=== PATIENT | male | born 1960 | race Caucasian/White ===

== ENCOUNTER 2024-09-25 13:15 | Emergency (ER) | payer MEDICARE, SELFPAY ==
[2024-09-25 13:30] VITALS: BP 134/81; PULSE 84; RESP 16; TEMP 36.9; O2SAT 98
--- NOTE | 2024-09-25 13:30 | ED.EAR ---
HPI - Ear Problem General Chief complaint: Ear Stated complaint: EAR CLOGGED Time Seen by Provider: 09/25/24 13:30 Source: patient, RN notes reviewed and old records reviewed Mode of arrival: ambulatory Limitations: no limitations History of Present Illness HPI Narrative: 64 year old male accompanied by daughter with complaints of ringing in the ears and feeling like his ears are clogged. Daughter reports that her father had episode in July where he had dizziness, vertigo, and change in mood, was forgetful and was taken to the ED at [place] where he had CT scan and MRI of the brain and he did follow up with his primary care physician as ordered. Patient does have follow up with ENT doctor in [place] bu not till November. Patient did have hernia surgery on September 16 in [place].Daughter reports that father seems different he is forgetful and mood different also, states that his friends also have noted changes in him, she is concerned of alcohol related dementia. Patient does admit to daily alcohol use states at least 6 pack daily. Patient reports no tobacco use and denies any use of marijuana or any illicit drug use. Daughter reports that he has had some falls in the past 6 months. MD Complaint: other (tinnitus, ears fell clogged, hearing decreased,forgetfullness and some intermittent dizziness.) Location: bilateral Duration: constant Severity: moderate Relieving factors: nothing Discharge from ear: Reports no Treatment prior to arrival: other (has been seen in ED, had follow up with PCP and has appt with ENT in November) Related Data Home Medications ?Medication ?Instructions ?Recorded ?Confirmed ?Last Taken ?Type amlodipine 5 mg tablet 5 mg PO DAILY 09/25/24 09/25/24 Unknown History bupropion HCl 300 mg 24 hr tablet, 300 mg PO DAILY 09/25/24 09/25/24 Unknown History extended release citalopram 20 mg tablet 20 mg PO DAILY 09/25/24 09/25/24 Unknown History meloxicam 15 mg tablet 15 mg PO DAILY 09/25/24 09/25/24 Unknown History simvastatin 20 mg tablet 20 mg PO QPM 09/25/24 09/25/24 Unknown History Allergies Allergy/AdvReac Type Severity Reaction Status Date / Time No Known Allergies Allergy Unverified 09/25/24 13:23 Review of Systems Review of Systems: CONSTITUTIONAL: Denies malaise, chills, sweats, or fever. EYES: Denies visual changes, redness, or discharge. ENT: Reports no rhinorrhea, congestion, sinus pain,no otalgia reports constant ringing in ears,and no sore throat. CARDIOVASCULAR: Denies chest pain, palpitations, or edema. RESPIRATORY: Reports no cough.? Denies dyspnea. GASTROINTESTINAL: Denies abdominal pain, nausea, vomiting, diarrhea SKIN: Denies rash or itching. MUSCULOSKELETAL: Denies myalgia. NEUROLOGIC: Denies headache.reports some episodes of dizziness, and constant ear ringing All systems reviewed & are unremarkable except as noted in HPI and below PMFSH Past Medical History Medical History (Updated 09/26/24 @ 16:05 by Ml Maloney NP) Depression Arthritis Tinnitus Hyperlipidemia Hypertension Surgical History Surgical History (Updated 09/26/24 @ 15:45 by Ml Maloney NP) History of total bilateral knee replacement History of shoulder surgery left History of hernia repair 09/2024 Family History Family History (Updated 12/31/13 @ 07:13 by DOCTOR UNKNOWN) Other Family history of arthritis Social History Social History (Updated 09/26/24 @ 15:48 by Ml Maloeny NP) Smoking status: Never smoker Alcohol intake: current Alcohol use details: reports daily alcohol use Substance use type: does not use Living arrangements: alone Occupation/Education: retired Additional occupation/education comments: construction Gender identity (if verbalized by the patient): Male Comments At time of signature, agree with nursing past medical, surgical, social and family history. There is no relevant family history pertinent to the presenting complaint Exam Narrative: GENERAL: Well-appearing, well-nourished, and in no acute distress. HEAD: Normocephalic EYES: PERRLA, conjunctivae clear, no nystagmus ENT: Nares clear, turbinates edematous and erythematous, clear discharge. Mucous membranes moist. TM pearly jennings with dull light reflex bilaterally; no tragal tenderness, Reports constant ringing in ears and decreased hearing.. Oropharynx erythematous without lesions. Tonsils not enlarged and without exudate, no drooling, no hoarseness, no trismus, uvula midline. NECK: Supple. No lymphadenopathy CHEST: Clear to auscultation, breath sounds equal. No wheezing, rhonchi, rales, or stridor. No respiratory distress, speaks in full sentences.SAO2 98% on room air HEART: Regular rate and rhythm. No murmur heard. SKIN: Warm, dry, no rash. NEURO: Alert and oriented x3.does report some forgetfulness, reports some episodes of feeling dizzy with episode a month ago of vertigo with ED visit PSYCH: Normal mood and affect, reports history of depression is on Celexa and Wellbutrin daily Course Course Emergency Course: Patient is aware of diagnosis, understands and agrees to treatment plan.? Anticipatory guidance given.? Patient agrees to follow-up as directed and is aware of reasons to seek care at the emergency department. Portions of this record may have been created with voice recognition software Level of Care: Express Care Visit Vital Signs Vital signs: Vital Signs Temperature 36.9 C 09/25/24 13:30 Pulse Rate 84 09/25/24 13:30 Respiratory Rate 16 09/25/24 13:30 Blood Pressure 134/81 09/25/24 13:30 Pulse Oximetry 98 09/25/24 13:30 Temperature 36.9 C 09/25/24 13:30 Pulse Rate 84 09/25/24 13:30 Respiratory Rate 16 09/25/24 13:30 Blood Pressure 134/81 09/25/24 13:30 Pulse Oximetry 98 09/25/24 13:30 Reviewed Medical Decision Making Differential Diagnosis Differential Diagnosis: acute tinnitus, Meniere's disease, decreased hearing, concern of family for changes in mental status Medical Records Medical records reviewed: Yes I reviewed the external patient's medical records. Vital Signs Vital Signs: Vital Signs Temperature 36.9 C 09/25/24 13:30 Pulse Rate 84 09/25/24 13:30 Respiratory Rate 16 09/25/24 13:30 Blood Pressure 134/81 09/25/24 13:30 Pulse Oximetry 98 09/25/24 13:30 Temperature 36.9 C 09/25/24 13:30 Pulse Rate 84 09/25/24 13:30 Respiratory Rate 16 09/25/24 13:30 Blood Pressure 134/81 09/25/24 13:30 Pulse Oximetry 98 09/25/24 13:30 reviewed Critical Care Time Critical Care Time Critical Care Time: No Discharge Plan Discharge Clinical Impression: Bilateral tinnitus Decreased hearing Qualifiers: Laterality: bilateral Qualified Code(s): H91.93 - Unspecified hearing loss, bilateral Patient Disposition: Home Condition: Stable Instructions: Tinnitus (ED) Additional Instructions: Make position changes slowly make sure you are drinking plenty of fluids such as water juices avoid caffeine daily antihistamine such as Zyrtec or Claritin, Tylenol for pain can use Coricidin brand decongestant keep list of medications in your wallet at all times follow-up with your primary doctor for further evaluation keep appointment that is already established with ENT avoid alcohol use as much as possible, quit If your symptoms persist, change or worsen significantly before you can contact your personal physician then please, without delay, go to the emergency department for further evaluation. Follow-up with PCP in 7-10 days or sooner if needed Follow up with PCP soon in regards to your blood pressure which is elevated above threshold for referral. Blood pressure above 120/80 may indicate pre-hypertension. 134/81 Patient Language: Kazakh Prescriptions: No Action citalopram 20 mg tablet 20 mg PO DAILY amlodipine 5 mg tablet 5 mg PO DAILY bupropion HCl 300 mg tablet extended release 24 hr 300 mg PO DAILY meloxicam 15 mg tablet 15 mg PO DAILY simvastatin 20 mg tablet 20 mg PO QPM Follow-up/Referrals: Cortes,Osvaldo Tilley MD [Primary Care Provider] - Time of Disposition: 14:05 Quality Candice Coma Scale Eyes: Open Verbal: Oriented and Alert Motor: Follows Commands Candice Coma Total Score: 15
== END 2024-09-25 14:09 | disposition home or self-care (01) ==
PROVIDERS: Emergency Provider Registered Nurse; PCP Internal Medicine
DX: H93.13 Tinnitus, bilateral (principal); H91.93 Unspecified hearing loss, bilateral; I10 Essential (primary) hypertension; E78.5 Hyperlipidemia, unspecified; M19.90 Unspecified osteoarthritis, unspecified site; Z96.653 Presence of artificial knee joint, bilateral; F32.A Depression, unspecified
CPT/HCPCS: 99211; G0463

== ENCOUNTER 2025-02-20 10:33 | Emergency (ER) | payer MEDICARE, SELFPAY ==
--- NOTE | ~2025-02-20 | XR_ITS ---
Examination: XR ankle LT min 3V Clinical History: pain with trauma Comparison: None Technique: 3 views left ankle Findings/impression: 1. No fracture or dislocation left ankle. 2. Severe soft tissue swelling lateral ankle. 3. Diabetic arteriopathy. 4. Small calcaneal plantar enthesophyte. Reviewed, dictated and finalized at location R.
--- NOTE | 2025-02-20 10:50 | ED.LOWEXIN ---
HPI - Extremity Injury (Lower) General Chief Complaint: Extremity Injury, Lower Stated Complaint: Injured L Ankle Patient presents to the [facility] with complaints of bruising, swelling, and pain to left ankle that began last after a fall. No medication remedies attempted for symptoms. Patient reports increased pain with movement and weight-bearing. Denies numbness or tingling in foot or toes Related Data Home Medications ?Medication ?Instructions ?Recorded ?Confirmed ?Last Taken ?Type amlodipine 5 mg tablet 5 mg PO DAILY 09/25/24 02/20/25 Unknown History bupropion HCl 300 mg 24 hr tablet, 300 mg PO DAILY 09/25/24 02/20/25 Unknown History extended release citalopram 20 mg tablet 20 mg PO DAILY 09/25/24 02/20/25 Unknown History meloxicam 15 mg tablet 15 mg PO DAILY 09/25/24 09/25/24 Unknown History simvastatin 20 mg tablet 20 mg PO QPM 09/25/24 02/20/25 Unknown History oxycodone-acetaminophen 5 mg-325 tablet 02/20/25 Unknown History mg tablet Allergies Allergy/AdvReac Type Severity Reaction Status Date / Time No Known Allergies Allergy Verified 02/20/25 10:50 Review of Systems Constitutional: Constitutional: Reports as per HPI, Denies chills, Denies fatigue, Denies fever(s) and Denies weakness Eyes: Eyes: Reports no additional eye complaints ENT: Reports system reviewed and no additional complaints, except as documented Cardiovascular: Cardiovascular: Reports no additional cardiovascular complaints Respiratory: Respiratory: Reports no additional respiratory complaints Gastrointestinal: Gastrointestinal: Reports no additional gastrointestinal complaints Genitourinary: Genitourinary: Reports no additional male genitourinary complaints Musculoskeletal: Musculoskeletal: Reports as per HPI, Reports arthralgias and Reports joint swelling Integumentary/Breasts: Skin/Breast: Reports as per HPI, Denies pruritus, Denies rash and Denies skin ulcer Comments: bruising Neurologic: Reports as per HPI, Denies numbness and Denies weakness Psychiatric: Psychiatric: Reports no additional psychiatric complaints Endocrine: Endocrine: Reports no additional endocrine complaints Hematologic/Lymphatic: Hematologic/Lymphatic: Reports no additional hematologic/lymphatic complaints Allergic/Immunologic: Allergic/Immunologic: Reports no additional allergic/immunologic complaints [facility] Past Medical History Medical History (Updated 02/20/25 @ 11:26 by Dulce D. Galletta, [employer]) Depression Arthritis Tinnitus Hyperlipidemia Hypertension Surgical History Surgical History (Updated 09/26/24 @ 15:45 by Ml Maloney NP) History of total bilateral knee replacement History of shoulder surgery left History of hernia repair 09/2024 Family History Family History (Updated 12/31/13 @ 07:13 by DOCTOR UNKNOWN) Other Family history of arthritis Social History Social History (Updated 09/26/24 @ 15:48 by Ml Maloney NP) Smoking status: Never smoker Alcohol intake: current Alcohol use details: reports daily alcohol use Substance use type: does not use Living arrangements: alone Occupation/Education: retired Additional occupation/education comments: construction Gender identity (if verbalized by the patient): Male Exam Const: General: healthy appearing and no acute distress Nutritional Appearance: well nourished Orientation/consciousness: patient oriented x3 Limitations: no limitations Resp: Effort & Inspection: normal respiratory effort Auscultation: clear to auscultation bilaterally Cardio: Rate: regular rate Rhythm: regular rhythm Skin: Rashes: no rashes Wounds: no wounds Other: ecchymosis to left ankle Neuro: General: patient oriented x3 and moves all extremities Speech: normal speech Gait exam (Neuro): Normal gait present Extrem: Left lower extremity: ankle Details: abnormal to inspection, tenderness Location: of the lateral malleolus, swelling Details: laterally, pitting edema, abnormal ROM Details: pain with active ROM and pain with passive ROM and ecchymosis; edema, ROM abnormal, no warmth, no abrasions, no lacerations, no crepitus, no foreign bodies, no penetrating wound and achilles tendon exam normal Psych: Mental Status: mental status grossly normal Affect: normal affect Attitude: cooperative Course Course Level of Care: Express Care Visit Vital Signs Vital signs: Vital Signs Temperature 98.8 F 02/20/25 10:51 Pulse Rate 84 02/20/25 10:51 Respiratory Rate 18 02/20/25 10:51 Blood Pressure 133/84 02/20/25 10:51 Pulse Oximetry 97 02/20/25 10:51 Oxygen Delivery Room Air 02/20/25 10:51 Temperature 98.8 F 02/20/25 10:51 Pulse Rate 84 02/20/25 10:51 Respiratory Rate 18 02/20/25 10:51 Blood Pressure 133/84 02/20/25 10:51 Pulse Oximetry 97 02/20/25 10:51 Oxygen Delivery Room Air 02/20/25 10:51 MDM - Extremity Injury (Lower) MDM Narrative Medical decision making narrative: x-rays ordered. The patient was evaluated by myself in the express care. History is obtained from patient who is an independent historian and physical exam was performed. Available medical records were reviewed at this time. Exam findings show no acute concerns or changes; patient is non-toxic appearing and is in no distress. Patient is appropriate for outpatient treatment and follow-up. I have evaluated and discussed social determinants of health with the patient that could potentially impact subsequent diagnosis and treatment plans. Differential diagnosis and treatment plan were discussed with the patient. Patient agrees with discussion and after shared medical decision making agrees with plan of care. All questions were answered to the patient's satisfaction. Differential Diagnosis Differential diagnosis: Likely ankle sprain and strain, puncture wound of foot and ankle fracture Medical Records Attestation: I reviewed the patient's medical records. Imaging Data Attestation: I personally reviewed and interpreted this imaging study as follows: My impression: No fracture noted. Abnormal area to distal tibia Radiologist's impression: Findings/impression: 1. No fracture or dislocation left ankle. 2. Severe soft tissue swelling lateral ankle. 3. Diabetic arteriopathy. 4. Small calcaneal plantar enthesophyte. Reviewed, dictated and finalized at location R. Discharge Plan Discharge Clinical Impression: Left ankle sprain Patient Disposition: Home Condition: Stable Instructions: Antibiotic Form, Ankle Sprain (ED) Additional Instructions: Xray showed no fracture. Minimize activities that aggravate the condition The RICE protocol. Follow the RICE protocol as soon as possible after your injury: Rest your affected limb by not walking on it/not using this. Ice should be immediately applied to keep the swelling down. It can be used for 20 to 30 minutes, three or four times daily. Do not apply ice directly to your skin. Gentle range of motion exercises as tolerated. Compression dressings, bandages or mary-wraps will immobilize and support your injured limb Elevate affected area above the level of your heart if possible as often as possible during the first 48 hours then as needed for increased swelling. Medication: Nonsteroidal anti-inflammatory drugs (NSAIDs) such as ibuprofen and naproxen can help control pain and swelling. Because they improve function by both reducing swelling and controlling pain, they are a better option for mild sprains than narcotic pain medicines. Please schedule a follow-up visit with your personal physician for further evaluation and treatment within 1week OR If your symptoms persist, change or worsen significantly before you can contact your personal physician then please, without delay, go to the emergency department for further evaluation. Patient Language: Citizen Of [place] Prescriptions: No Action citalopram 20 mg tablet 20 mg PO DAILY amlodipine 5 mg tablet 5 mg PO DAILY bupropion HCl 300 mg tablet extended release 24 hr 300 mg PO DAILY meloxicam 15 mg tablet 15 mg PO DAILY simvastatin 20 mg tablet 20 mg PO QPM oxycodone-acetaminophen 5-325 mg tablet Follow-up/Referrals: PHYSICIAN,[employer] [facility] [Primary Care Provider, Internal Medicine] Time of Disposition: 11:26
[2025-02-20 10:51] VITALS: BP 133/84; PULSE 84; RESP 18; TEMP 37.1; O2SAT 97
== END 2025-02-20 11:32 | disposition home or self-care (01) ==
PROVIDERS: Emergency Provider Nurse Practitioner Family
DX: S93.402A Sprain of unspecified ligament of left ankle, initial encounter (principal); W19.XXXA Unspecified fall, initial encounter; I10 Essential (primary) hypertension; E78.5 Hyperlipidemia, unspecified; M19.90 Unspecified osteoarthritis, unspecified site; F32.A Depression, unspecified; Z96.653 Presence of artificial knee joint, bilateral
CPT/HCPCS: 73610; 99213; G0463